=== PATIENT | male | born 1985 | race Caucasian/White ===

== ENCOUNTER 2017-10-19 17:23 | Emergency (ER) | payer OTHER ==
[2017-10-19 17:30] VITALS: BP 172/84
--- NOTE | 2017-10-19 17:45 | Emergency Department Report ---
Chief Complaint: Chest Pain Stated Complaint: CHEST PAIN Time Seen by Provider: 10/19/17 17:41 - HPI History of Present Illness: Patient is a 32-year-old male presents to ED stating to 3 days ago he took a performance build from one of his friends he describes a pill as oblong red white capsule with an extra pill at the end. Patient does not know the name of the pill as it wasn't some Yi writing. Patient states hour after taking the pill he started to feel like his heart was racing but thought nothing of it. Patient states today he was running around playing football with his son when he saturates experience his heart racing and some left-sided chest pain. He denies shortness of breath, dizziness, headache, blurry vision or any other problems pain - ROS Review of Systems: As noted in HPI - Exam Vital Signs: Vital Signs 10/19/17 17:26 Temperature 97.6 F Pulse Rate 80 Respiratory 18 Rate Blood Pressure 172/84 O2 Sat by Pulse 100 Oximetry Physical Exam: GENERAL: Alert and oriented x3, no apparent distress, Normal Gait, atraumatic. LUNGS: Symetrical with respiration, No wheezing, no rales or crackles, CTAB. HEART: S1, S2 present, regular rate and rhythm without murmur, no rubs, no gallops. Non tender to palpation SKIN: Warm and dry, No lesions, No ulceration or induration present. MSE screening note: Focused history and physical exam performed. Due to findings the following was ordered: ED Medical Decision Making - Medical Decision Making Chest and protocol ordered, EKG ordered. Urine drug screen tests ordered 32-year-old male looks stable and is in no acute distress ED Disposition for MSE Condition: Stable
[2017-10-19 18:15] LABS: Hematocrit 45.2 % (35.5-45.6); Hemoglobin 14.9 gm/dl (11.8-15.2); Mean Corpuscular HGB Conc 33 % (32-34); Mean Corpuscular Hemoglobin 29 pg (28-32); Mean Corpuscular Volume 87 fl (84-94); Platelet Count 228 K/mm3 (140-440); Red Blood Count 5.22 M/mm3 (3.65-5.03); Red Cell Distribution Width 14.1 % (13.2-15.2); White Blood Count 6.9 K/mm3 (4.5-11.0)
[2017-10-19 18:34] LABS: Anion Gap 18 mmol/L; BUN/Creatinine Ratio 8; Blood Urea Nitrogen 7 mg/dL (9-20); Carbon Dioxide 26 mmol/L (22-30); Chloride 103.5 mmol/L (98-107); Glucose 93 mg/dL (75-100); Potassium 4.4 mmol/L (3.6-5.0); Sodium 143 mmol/L (137-145)
[2017-10-19 18:50] LABS: Urine Drugs of Abuse Note Disclamer
[2017-10-19 18:56] LABS: Blastocytes % (Manual) 0 %; RBC Morphology Normal
[2017-10-19 18:57] LABS: Diff Status Complete; Platelet Estimate Consistent w Auto
== END 2017-10-19 21:54 | disposition left against medical advice (07) ==
LOC: ED 17:23
DX: R07.9 Chest pain, unspecified (principal); Z53.21 Procedure and treatment not carried out due to patient leaving prior to being seen by health care provider; Z79.899 Other long term (current) drug therapy
CPT/HCPCS: 36415; 80048; 80307; 84484; 85007; 85025; 93005; 93010

== ENCOUNTER 2019-01-11 02:45 | Inpatient (IN) | payer SELFPAY ==
--- NOTE | 2019-01-11 03:52 | Cat Scan Report ---
PROCEDURE: CT HEAD/BRAIN WO CON TECHNIQUE: Computerized tomography of the head was performed without contrast material. CT DOSE LENGTH PRODUCT: mGycm HISTORY: fall, [place] with Dizziness, nausea COMPARISONS: None . FINDINGS: Skull and scalp: Normal . Paranasal sinuses: Normal . Ventricles and subarachnoid spaces: Normal . Cerebrum: No evidence of hemorrhage, acute infarction or mass . Cerebellum and brainstem: No evidence of hemorrhage, acute infarction or mass . Vasculature: Normal . IMPRESSION: Normal Examination . This document is electronically signed by Carlos Rudd MD., January 11 2019 03:49:49 AM ET
--- NOTE | 2019-01-11 06:28 | Emergency Department Report ---
ED Syncope HPI - General Chief Complaint: Fall Stated Complaint: HEADACHE/DIZZINESS Time Seen by Provider: 01/11/19 06:12 Source: patient Exam Limitations: no limitations - History of Present Illness Initial Comments: Patient is a 33-year-old male that presents emergency room with complaints of headache, dizziness and nausea. Patient states she had a syncopal episode yesterday. Patient states he was dizzy and blacked out and hit his head. Patient states he is unsure of how long he was unconscious. Patient states ever since blacking out he's felt dizzy as well as a headache and nauseous. Patient denies vomiting. Patient denies chest pain or shortness of breath. Patient states the headache is a 7 out of 10. Patient states the headache and symptoms are better with rest and worse with exertion and movement. Patient states the pain is not radiating his head. Timing/Prior Episodes: no prior history Precipitating Factors: Positive: blurred vision, lightheadedness Context: activity Loss of Consciousness: prolonged (minutes) Current Symptoms: blurred vision, dizziness, headache, injury, nausea - Related Data Allergies/Adverse Reactions: Allergies No Known Allergies Allergy (Unverified 10/19/17 17:26) Home Medications: Ambulatory Orders No Known Home Medications [No Reported Home Medications] 01/11/19 ED Review of Systems ROS: Stated complaint: HEADACHE/DIZZINESS Other details as noted in HPI Constitutional: denies: chills, fever Eyes: denies: eye pain, eye discharge, vision change ENT: denies: ear pain, throat pain Respiratory: denies: cough, shortness of breath, wheezing Cardiovascular: denies: chest pain, palpitations Endocrine: no symptoms reported Gastrointestinal: denies: abdominal pain, nausea, diarrhea Genitourinary: denies: urgency, dysuria Musculoskeletal: denies: back pain, joint swelling, arthralgia Skin: denies: rash, lesions Neurological: as per HPI, headache. denies: weakness, paresthesias Psychiatric: denies: anxiety, depression Hematological/Lymphatic: denies: easy bleeding, easy bruising ED Past Medical Hx - Past Medical History Previous Medical History?: Yes Hx Hypertension: Yes - Surgical History Past Surgical History?: Yes Additional Surgical History: l't leg S/P - Family History Family history: no significant - Social History Smoking Status: Current Every Day Smoker Substance Use Type: None - Medications Home Medications: Home Medications Medication Instructions Recorded Confirmed Last Taken Type No Known Home Medications [No 01/11/19 01/11/19 Unknown History Reported Home Medications] ED Physical Exam - General Limitations: No Limitations General appearance: alert, in no apparent distress - Head Head exam: Present: atraumatic, normocephalic - Eye Eye exam: Present: normal appearance, PERRL Pupils: Present: normal accommodation - ENT ENT exam: Present: mucous membranes moist - Neck Neck exam: Present: normal inspection - Respiratory Respiratory exam: Present: normal lung sounds bilaterally. Absent: respiratory distress - Cardiovascular Cardiovascular Exam: Present: regular rate, normal rhythm. Absent: systolic murmur, diastolic murmur, rubs, gallop - GI/Abdominal GI/Abdominal exam: Present: soft, normal bowel sounds - Rectal Rectal exam: Present: deferred - Extremities Exam Extremities exam: Present: normal inspection - Back Exam Back exam: Present: normal inspection - Neurological Exam Neurological exam: Present: alert, oriented X3 - Psychiatric Psychiatric exam: Present: normal affect, normal mood - Skin Skin exam: Present: warm, dry, intact, normal color. Absent: rash ED Course Vital Signs 01/11/19 01/11/19 01/11/19 02:52 06:52 14:20 Temperature 97.8 F 97.7 F Pulse Rate 73 66 Respiratory 16 18 12 Rate Blood Pressure 147/104 Blood Pressure 126/82 [Left] O2 Sat by Pulse 98 97 99 Oximetry - Reevaluation(s) Reevaluation #1: Discussed her results with patient. Head CT is negative. Patient will have further lab testing done. 01/11/19 06:35 Patient states unobtainable. An ablation attempted the patient is unsteady even get out of bed. 01/11/19 11:22 gait still unstable and patient unable to ambulate. Patient will be admitted to the hospitalist service for further evaluation and treatment. Patient agrees with plan of care and admission. 01/11/19 12:22 - Consultations Consultation #1: 01/11/19 12:33 Hospitalist consulted for admission. Hospitalist to admit patient and assume care of patient. Bridge orders placed for hospitalist ED Medical Decision Making - Lab Data Result diagrams: 01/11/19 06:50 01/11/19 06:50 - EKG Data -: EKG Interpreted by Me EKG shows normal: sinus rhythm, axis, intervals, QRS complexes, ST-T waves Rate: normal - Radiology Data Radiology results: report reviewed Negative head CT. Negative chest x-ray. - Medical Decision Making Patient is a 3-year-old male that transverse in with complaints of syncope and fall and dizziness. Patient also headache. Patient given a liter of fluids. Patient attempts to ambulate in the ER and was unable to due to his dizziness which made his gait is unstable. Patient will be admitted to the hospitalist service for further evaluation treatment. Labs unremarkable. Head CT negative chest x-ray negative. Patient will require an MRI to further evaluate neurologic conditions. UDS positive for cocaine and THC - Differential Diagnosis dizziness. Syncope. Head injury. Fall. Headache. Hypertension Critical Care Time: Yes Critical care attestation.: If time is entered above; I have spent that time in minutes in the direct care of this critically ill patient, excluding procedure time. Critical Care Time: 45 minutes ED Disposition Clinical Impression: Dizziness, Unsteady gait, Syncope and collapse Hypertension Qualifiers: Hypertension type: essential hypertension Qualified Code(s): I10 - Essential (primary) hypertension Headache Qualifiers: Headache type: unspecified Headache chronicity pattern: acute headache Intractability: intractable Qualified Code(s): R51 - Headache Disposition: DC-09 OP ADMIT IP TO THIS HOSP Is pt being admited?: Yes Does the pt Need Aspirin: No Condition: Critical Time of Disposition: 12:30
[2019-01-11] MEDS ORDERED: NACL 0.9% 1000 ML 1,000 ML IV ONE (06:34)
--- NOTE | 2019-01-11 06:52 | XRay Report ---
PROCEDURE: XR CHEST 1V AP TECHNIQUE: AP portable chest radiograph HISTORY: Syncope COMPARISONS: None FINDINGS: No mediastinal shift. Cardiac silhouette is not enlarged. No pneumothorax, effusion, or focal pulmona ry opacity identified. No acute skeletal findings. IMPRESSION: No acute pulmonary finding identified. This document is electronically signed by Jim Barton MD., January 11 2019 06:50:39 AM ET
[2019-01-11 07:02] LABS: Basophils % (Auto) 0.5 % (0.0-1.8); Eosinophils # (Auto) 0.2 K/mm3 (0.0-0.4); Hemoglobin 16.7 gm/dl (11.8-15.2); Lymphocytes # (Auto) 4.4 K/mm3 (1.2-5.4); Lymphocytes % (Auto) 50.7 % (13.4-35.0); Mean Corpuscular HGB Conc 35 % (32-34); Mean Corpuscular Volume 87 fl (84-94); Monocytes # (Auto) 0.9 K/mm3 (0.0-0.8); Monocytes % (Auto) 10.1 % (0.0-7.3); Platelet Count 277 K/mm3 (140-440); Red Blood Count 5.54 M/mm3 (3.65-5.03); Red Cell Distribution Width 14.2 % (13.2-15.2)
[2019-01-11 07:21] LABS: Alanine Aminotransferase 12 units/L (7-56); Albumin 4.5 g/dL (3.9-5); BUN/Creatinine Ratio 10; Blood Urea Nitrogen 8 mg/dL (9-20); Calcium 9.7 mg/dL (8.4-10.2); Hemolysis Index 11
[2019-01-11 07:23] LABS: Creatine Kinase MB < 1.0 ng/mL (0.0-4.0)
[2019-01-11 08:55] LABS: Bilirubin,Urine NEG (Negative); Blood,Urine NEG (Negative); Color,Urine Yellow (Yellow); Mucus,Urine FEW /HPF; Protein,Urine <15 mg/dL mg/dL (Negative); Urobilinogen,Urine < 2.0 mg/dL (<2.0); WBC,Urine < 1.0 /HPF (0.0-6.0)
[2019-01-11 09:33] LABS: Amphetamine Screen,Urine PRESUMPTIVE NEGATIVE; Benzodiazepines Screen,Urine PRESUMPTIVE NEGATIVE; Methadone Screen,Urine PRESUMPTIVE NEGATIVE; Opiate Screen,Urine PRESUMPTIVE NEGATIVE
[2019-01-11 09:47] LABS: Cannabinoid Screen,Urine PRESUMPTIVE POSITIVE; Cocaine Screen,Urine PRESUMPTIVE POSITIVE
[2019-01-11] MEDS ORDERED: ASPIRIN PO ONE (11:02)
[2019-01-11] MEDS ORDERED: ASPIRIN ONE (11:06)
--- NOTE | 2019-01-12 03:50 | Event Note ---
Date: 01/11/19 See dictated H/p in reports AMS sec to THC and dehydration
[2019-01-12] MEDS ORDERED: PHENERGAN PR PRN (03:57)
[2019-01-12] MEDS ORDERED: ZOFRAN IV PRN (03:57)
[2019-01-12] MEDS ORDERED: TYLENOL PO PRN (03:57)
[2019-01-12] MEDS ORDERED: SODIUM CHLORIDE FLUSH SYRINGE 10 ML IV PRN (03:57)
[2019-01-12] MEDS ORDERED: D5NS 1,000 ML IV SCH (04:00)
[2019-01-12] MEDS ORDERED: SODIUM CHLORIDE FLUSH SYRINGE 10 ML IV SCH (04:00)
--- NOTE | 2019-01-12 05:20 | History and Physical Report ---
CHIEF COMPLAINT: 1. Dizziness and headache. 2. Syncopal episode yesterday. HISTORY OF PRESENT ILLNESS: A 33-year-old -[place] male, who comes in for headache and dizziness and unable to walk. The patient had a syncopal episode yesterday. The patient has been doing marijuana and cocaine on a regular basis and had a heavy dose yesterday. No vomiting. Headache pain is about 7/10. No exacerbating or relieving factors. He has lightheadedness and blurred vision. The patient has been doing marijuana and cocaine on a regular basis. PAST MEDICAL HISTORY: No significant past medical history except for hypertension. SURGICAL HISTORY: Left leg surgery. FAMILY HISTORY: Hypertension. SOCIAL HISTORY: Smokes over a pack a day and also marijuana and cocaine use on a regular basis. REVIEW OF SYSTEMS: Significant for headache and excessively sleepy and unable to wake up and unable to stand steady. Syncopal episode yesterday. Otherwise, review of systems negative. No fever, no chills. PHYSICAL EXAMINATION: GENERAL: Young male, drowsy during my examination. No focal signs. VITAL SIGNS: Temperature 97.7, pulse is 121, respiratory rate is 18, sats are 100%, blood pressure is 162/85. HEENT: Dry mucous membranes. NECK: Supple, no lymphadenopathy, no thyromegaly. LUNGS: Clear to auscultation and percussion. Good air entry. CARDIOVASCULAR: S1, S2 heard. No gallop, no murmur, no rub. Apical impulse in the left fifth intercostal space and midclavicular line. ABDOMEN: Soft and benign. No hepatosplenomegaly. No guarding, no rigidity. Hernial orifices are normal. EXTREMITIES: Good pedal pulses. No pedal edema. CENTRAL NERVOUS SYSTEM: Normal strength in all 4 extremities. Unable to stand secondary to his marijuana and cocaine abuse. Stands with difficulty, but able to lift his legs and arms while lying down. LABORATORY DATA: Significant for hemoglobin of 16.7, hematocrit of 48.0, platelet count of 277,000. Electrolytes are normal. BUN and creatinine is 8 and 0.8. LFTs are normal. Drug screen is positive for cocaine and marijuana. IMAGING: EKG normal sinus rhythm, normal intervals, normal QRS complexes. Heart rate of 61 per minute. Left ventricular hypertrophy present. Negative CT of the head. Negative chest x-ray. ASSESSMENT AND PLAN: 1. Syncope secondary to THC and cocaine abuse. IV fluids. No workup. We will defer to primary team regarding Lexiscan or exercise stress test. I am in favor of syncopal episode secondary to drug abuse. The patient may have fallen down secondary to excessive altered sensorium. The patient is young, has mild hypertension, does not have any risk factors for cardiac history or cardiac disease. We will get a Lexiscan because of the cocaine use to rule out any acute ischemic injury. 2. Dehydration. IV fluids. 3. Polycythemia secondary to hemoconcentration. 4. THC and cocaine abuse, counseling done. The patient to get outpatient treatment if he is willing to do. 5. Deep venous thrombosis prophylaxis, Lovenox 40 mg subcutaneous daily. JOB# [id number] GILBERTO/AYAN
[2019-01-12 05:48] LABS: Basophils % (Auto) 0.5 % (0.0-1.8); Eosinophils # (Auto) 0.1 K/mm3 (0.0-0.4); Eosinophils % (Auto) 1.7 % (0.0-4.3); Hemoglobin 16.9 gm/dl (11.8-15.2); Lymphocytes # (Auto) 3.6 K/mm3 (1.2-5.4); Lymphocytes % (Auto) 45.6 % (13.4-35.0); Mean Corpuscular HGB Conc 34 % (32-34); Mean Corpuscular Volume 87 fl (84-94); Monocytes # (Auto) 0.7 K/mm3 (0.0-0.8); Monocytes % (Auto) 8.7 % (0.0-7.3); Platelet Count 305 K/mm3 (140-440); Red Blood Count 5.74 M/mm3 (3.65-5.03); Red Cell Distribution Width 13.9 % (13.2-15.2)
[2019-01-12 06:06] LABS: Alanine Aminotransferase 14 units/L (7-56); Albumin 4.5 g/dL (3.9-5); BUN/Creatinine Ratio 10; Blood Urea Nitrogen 9 mg/dL (9-20); Calcium 9.6 mg/dL (8.4-10.2); Hemolysis Index 7
[2019-01-12] MEDS ORDERED: LEXISCAN IV ONE (08:51)
[2019-01-12] MEDS ORDERED: PEPCID PO SCH (10:00)
[2019-01-12 11:48] VITALS: BP 140/92
[2019-01-12] MEDS ORDERED: AFLURIA QUAD 2018-2019 SYRINGE IM ONE (12:00)
--- NOTE | 2019-01-12 12:57 | Discharge Summary ---
Providers - Providers Date of Admission: 01/11/19 12:35 Date of discharge: 01/12/19 Attending physician: WELLINGTON WYNN Hospitalization Condition: Stable Hospital course: Patient is a 33 yo man who recently moved here from [place], [place] without chronic medical problems with a history of tobacco dependency, marijuana and cocaine use who presented with AMS and possibly a syncopal episode after cocaine and marijuana use. * 2D ECHO reviewed with Dr. Varghese. Outpatient consulted suggested -AMS due to Acute toxic metabolic encephalopathy from illegal drugs: counselling done -Syncope most likely vasovagal -Suspected Hypertension with heart LVH: added low dose lisinopril -Polysubstance abuse with cocaine and marijuana: assistant counsel on compliance -Tobacco dependency: assistant counsel on stopping. Disposition: DC-01 TO HOME OR SELFCARE Time spent for discharge: 35 minutes Core Measure Documentation - Palliative Care Palliative Care/ Comfort Measures: Not Applicable - Core Measures Any of the following diagnoses?: none - VTE Discharge Requirements Deep Vein Thrombosis/Pulmonary Embolism Present on Admission: No Has pt received <5 days of overlap therapy or INR<2.0: No Anticoagulant overlap therapy prescribed at discharge: No Contraindication No Overlap Therapy order at DC: Not Indicated Exam - Physical Exam Narrative exam: GEN: WDWN, NAD, Awake, Alert, Orientated HEENT: NCAT, EOMI, PERRL, OP Clear NECK: supple, no adenopathy, no thyromegaly, no JVD CVS/HEART: RRR, normal S1S2, pulses present bilaterally CHEST/LUNGS: CTA B, Symmetrical chest expansion, good air entry bilaterally GI/Abdomen: soft, NTND, good bowel sounds, no guarding or rebound /Bladder: no suprapubic tenderness, no CVA or paraspinal tenderness EXT/Skin: no c/c/e, no obvious rash MSK: FROM x 4 Neuro: CN 2-12 grossly intact, no new focal deficits Psych: calm - Constitutional Vitals: Temp Pulse Resp BP Pulse Ox 97.7 F 88 20 140/92 99 01/12/19 11:13 01/12/19 11:13 01/12/19 11:13 01/12/19 11:13 01/12/19 11:13 Plan Activity: other (no strenous activity) Diet: low salt Special Instructions: record daily BP diary, smoking cessation Follow up with: [facility] [Other] - 3-5 Days DAVIE VARGHESE MD [Staff Physician] - 7 Days Prescriptions: Lisinopril [Prinivil] 5 mg PO QDAY #30 tablet
--- NOTE | 2019-01-12 21:11 | Treadmill Report ---
TREADMILL STRESS TEST Treadmill nuclear stress test, this is the treadmill portion, here for syncope with cocaine use. The patient's baseline EKG is sinus rhythm at 61 with early repolarization. Baseline blood pressure was 138/95. The patient achieved 90% max predicted heart rate. Peak heart rate was 180. Peak blood pressure 182/98. There were no EKG changes to suggest ischemia. No arrhythmia to suggest ischemia. Stopped secondary to shortness of breath. SUMMARY: 1. Negative treadmill EKG. 2. Good exercise capacity 9 minutes Abltazar protocol. 3. No exaggerated BP response to exercise. 4. There is no diagnostic EKG changes or anything to suggest ischemia. Nuclear imaging pending. JOB# [id number] ZA/AYAN
--- NOTE | 2019-01-12 21:43 | Treadmill Report ---
NUCLEAR PERFUSION STUDY REASON FOR STUDY: Syncope and cocaine use. IMAGING PROTOCOL: The patient received 10 mCi of Technetium 99m Tetrofosmin for resting image and 28 mCi of Technetium 99m Tetrofosmin for stress imaging. The imaging for the whole procedure was completed 30-90 minutes following the initial injection of Technetium 99m Tetrofosmin. The SPECT imaging in the 180 degree arc was performed in the right anterior oblique projection. Computerized reconstruction of the images was performed for analysis. IMAGING RESULTS: Normal cavity size from stress to rest. Normal distribution of radionuclide in the anterior, inferior, septal, and apical regions. Gated SPECT, EF 50% with no wall motion abnormality. The patient exercised 9 minutes of Baltazar protocol. No EKG changes suggestive of ischemia. SUMMARY: 1. Negative treadmill EKG. 2. [id number] exercise capacity, 9 minutes of Baltazar protocol. 3. No exaggerated BP response to exercise. 4. Normal rest and stress myocardial perfusion scan. No significant stress ischemia. No wall motion abnormality. Gated SPECT, EF 50%. JOB# [id number] ZA/AYAN
== END 2019-01-12 14:20 | disposition home or self-care (01) | DRG 917 ==
LOC: ED 02:45 → 3A 12:35
PROVIDERS: ADMIT Internal Medicine; ATTEND Internal Medicine
DX: T40.7X1A Poisoning by cannabis (derivatives), accidental (unintentional), initial encounter (principal); G92 Toxic encephalopathy; R55 Syncope and collapse; I10 Essential (primary) hypertension; F17.210 Nicotine dependence, cigarettes, uncomplicated; R51 Headache; E86.0 Dehydration; Y92.89 Other specified places as the place of occurrence of the external cause; I11.9 Hypertensive heart disease without heart failure; F14.10 Cocaine abuse, uncomplicated; D75.1 Secondary polycythemia
CPT/HCPCS: 36415; 70450; 71045; 78452; 80053; 80307; 81001; 82550; 82553; 84484; 85025; 85379; 90686; 93005; 93010; 93017; 93306; 96374; 99291; 99406; G0378; A9502; J2785; J7030

== ENCOUNTER 2020-07-26 16:20 | Emergency (ER) | payer SELFPAY | END 2020-07-26 16:40 | disposition left against medical advice (07) | LOC: ED 16:20 | DX: R41.82 Altered mental status, unspecified (principal); Z53.21 Procedure and treatment not carried out due to patient leaving prior to being seen by health care provider ==

== ENCOUNTER 2021-01-17 05:07 | Emergency (ER) | payer SELFPAY ==
[2021-01-17] MEDS ORDERED: ONDANSETRON 4 MG/2 ML INJ ONE (05:21)
[2021-01-17] MEDS ORDERED: ONDANSETRON 4 MG/2 ML INJ IV ONE (05:24)
[2021-01-17] MEDS ORDERED: LORazepam 2 MG/ML VIAL ONE (06:15)
[2021-01-17] MEDS ORDERED: LORazepam 2 MG/ML VIAL IV ONE ×2 (06:22→07:25)
[2021-01-17 06:47] LABS: Basophils % (Auto) 0.3 % (0.0-1.8); Eosinophils % (Auto) 0.1 % (0.0-4.3); Hematocrit 49.6 % (35.5-45.6); Hemoglobin 16.4 gm/dl (11.8-15.2); Lymphocytes # (Auto) 2.5 K/mm3 (1.2-5.4); Mean Corpuscular HGB Conc 33 % (32-34); Mean Corpuscular Volume 92 fl (84-94); Monocytes # (Auto) 2.1 K/mm3 (0.0-0.8); Monocytes % (Auto) 11.7 % (0.0-7.3); Platelet Count 302 K/mm3 (140-440); Red Blood Count 5.39 M/mm3 (3.65-5.03); Red Cell Distribution Width 14.6 % (13.2-15.2)
[2021-01-17] MEDS ORDERED: SODIUM CHLORIDE 0.9% 1000 ML 1,000 ML IV ONE ×2 (06:49→11:00)
[2021-01-17 06:57] LABS: BUN/Creatinine Ratio 6; Blood Urea Nitrogen 9 mg/dL (9-20); Calcium 9.3 mg/dL (8.4-10.2); Hemolysis Index 11
--- NOTE | 2021-01-17 07:12 | Emergency Department Report ---
ED Seizure HPI - General Chief Complaint: Seizure Stated Complaint: POSS SEIZURE Time Seen by Provider: 01/17/21 06:15 Source: EMS Mode of arrival: Stretcher Limitations: Altered Mental Status - History of Present Illness Initial Comments: 35-year-old male, no past medical history, presents to ED following witnessed seizure at home. Upon EMS arrival, patient had been incontinent of urine and confused. Patient denied drinking any alcohol or using any drugs. EMS stated that family reports patient did drink some alcohol last night. EMS reports andrew ent slipped and fell when they arrived, hitting his head and causing a small laceration to the right eyebrow area. Just before I went and spoke to the patient, patient reported some abdominal pain to the nurse. When I went into the room, patient was actively seizing. This lasted for approximately 60 seconds. Ativan 2 mg was given. MD Complaint: seizure -: This morning Description of Episode: loss of consciousness, bladder incontinence, post-event confusion Witnessed:: Yes Seizure History: none Place: home Associated Symptoms: denies: cough, fever/chills, shortness of breath Treatments Prior to Arrival: none - Related Data Previous Rx's Medication Instructions Recorded Last Taken Type lisinopriL [Prinivil] 5 mg PO QDAY #30 tablet 01/12/19 Unknown Rx Naproxen [Naprosyn] 500 mg PO BID #20 tablet 01/17/21 Unknown Rx levETIRAcetam [Keppra TAB] 500 mg PO BID #60 tablet 01/17/21 Unknown Rx Allergies Allergy/AdvReac Type Severity Reaction Status Date / Time No Known Allergies Allergy Unverified 10/19/17 17:26 ED Review of Systems ROS: Stated complaint: POSS SEIZURE Other details as noted in HPI ED Past Medical Hx - Past Medical History Previous Medical History?: No Hx Hypertension: Yes Hx Asthma: No - Surgical History Past Surgical History?: No Additional Surgical History: l't leg S/P - Social History Smoking Status: Current Some Day Smoker Substance Use Type: None - Medications Home Medications: Home Medications Medication Instructions Recorded Confirmed Last Taken Type lisinopriL [Prinivil] 5 mg PO QDAY #30 tablet 01/12/19 Unknown Rx Naproxen [Naprosyn] 500 mg PO BID #20 tablet 01/17/21 Unknown Rx levETIRAcetam [Keppra TAB] 500 mg PO BID #60 tablet 01/17/21 Unknown Rx ED Physical Exam - General Limitations: Altered Mental Status General appearance: other (Actively seizing) - Head Head exam: Present: other (1 cm laceration just below right eyebrow) - Eye Eye exam: Present: normal appearance - ENT ENT exam: Present: mucous membranes moist - Neck Neck exam: Present: normal inspection - Respiratory Respiratory exam: Present: normal lung sounds bilaterally. Absent: respiratory distress - Cardiovascular Cardiovascular Exam: Present: normal rhythm, tachycardia - GI/Abdominal GI/Abdominal exam: Present: soft. Absent: distended, tenderness - Extremities Exam Extremities exam: Present: normal inspection - Neurological Exam Neurological exam: Present: other (actively seizing) - Skin Skin exam: Present: warm, dry, intact, normal color ED Course Vital Signs 01/17/21 01/17/21 01/17/21 05:11 06:40 06:45 Temperature 98.3 F Pulse Rate 83 95 H 95 H Respiratory 26 H 18 18 Rate Blood Pressure 138/86 143/66 Blood Pressure 132/71 [Left] O2 Sat by Pulse 97 100 100 Oximetry 01/17/21 01/17/21 01/17/21 07:01 07:54 08:01 Temperature Pulse Rate 89 92 H Respiratory 18 19 Rate Blood Pressure 138/72 143/66 175/103 Blood Pressure [Left] O2 Sat by Pulse 93 91 Oximetry 01/17/21 01/17/21 01/17/21 08:15 08:31 08:45 Temperature Pulse Rate 94 H 95 H 90 Respiratory 20 17 20 Rate Blood Pressure 141/77 146/80 146/87 Blood Pressure [Left] O2 Sat by Pulse 91 91 92 Oximetry 01/17/21 01/17/21 01/17/21 09:01 09:13 10:14 Temperature Pulse Rate 99 H 86 Respiratory 21 Rate Blood Pressure 150/82 109/75 Blood Pressure [Left] O2 Sat by Pulse 97 98 97 Oximetry 01/17/21 01/17/21 01/17/21 10:15 11:25 11:31 Temperature Pulse Rate 85 85 Respiratory 15 19 Rate Blood Pressure 117/58 130/56 117/56 Blood Pressure [Left] O2 Sat by Pulse 96 96 Oximetry 01/17/21 01/17/21 01/17/21 11:45 12:01 12:15 Temperature Pulse Rate 87 93 H 96 H Respiratory 19 19 19 Rate Blood Pressure 110/46 116/62 123/66 Blood Pressure [Left] O2 Sat by Pulse 94 100 100 Oximetry 01/17/21 01/17/21 12:31 13:42 Temperature Pulse Rate 90 Respiratory 16 Rate Blood Pressure 123/66 Blood Pressure 138/83 [Left] O2 Sat by Pulse 100 99 Oximetry - Reevaluation(s) Reevaluation #1: 01/17/21 07:17 I spoke with , who is waiting in the waiting room. She reports patient has no history of seizures in the past. He does smoke marijuana. states she does not know of any other drug use (drug screen from 2019 is positive for marijuana and cocaine ). He drinks occasionally, not every day. Patient did have alcoholic drinks last night. States patient had been fine up until his seizure, no altered mental status. states prior to the seizure, patient complained of a headache. She denies any fever, cough, diarrhea, abdominal pain. Although, patient complained of abdominal pain upon ED arrival. Reevaluation #2: 01/17/21 07:25 certified control systems technician called and states pt in CT yelling and cursing, attempting to get off of stretcher. Will order Ativan. Reevaluation #3: 01/17/21 09:23 Pt remains postictal, however, he is arousable, able to state name. Reevaluation #4: 01/17/21 11:55 Pt currently awake and alert, oriented x 3. States he is ready to go. I asked pt to give a urine sample. Pt stated, "I'll think about it." Will contact to black pickler pt. - Laceration /Wound Repair Right Face Wound Location: face Wound Length (cm): 1 Wound's Depth, Shape: superficial Wound Explored: clean Irrigated w/ Saline (ccs): 50 Wound Repaired With: Dermabond ED Medical Decision Making - Lab Data Result diagrams: 01/17/21 06:31 01/17/21 06:31 - EKG Data -: EKG Interpreted by Me EKG shows normal: sinus rhythm, axis, intervals, QRS complexes, ST-T waves Rate: normal - EKG Data Interpretation: no acute changes - Radiology Data Radiology results: report reviewed, image reviewed - Medical Decision Making 35-year-old male patient presents to ED after having a seizure at home. Patient had 1 witnessed seizure here in the ED. He was given Ativan 2 mg during that seizure. Also given another 2 mg of Ativan while in CT secondary to being postictal and somewhat aggressive. Patient was given IV fluids and Keppra while being observed in the ED. Patient was observed for more than 6 hours. Mental status eventually returned to baseline, with patient answering questions appropriately. CT head negative, chest x-ray negative, EKG unremarkable. Labs show some leukocytosis and metabolic acidosis, however likely secondary to patient's seizures. Patient is afebrile, remainder vital signs are normal, he is not tachycardic. There were a couple of O2 sats that were charted as 91 or 92, however this was in error, likely did not have a good waveform during these readings. I have personally observed patient's O2 sats and they have been normal. Patient is in no respiratory distress. Drug screen positive for cocaine and marijuana. Patient advised against drug use. He will be discharged at this time into the care of his . Patient is able to ambulate. Outpatient follow-up with neurologist advised. Prescription given for Keppra. Return precautions given. - Differential Diagnosis Intracranial abnormality, arrhythmia, electrolyte abnormality, drug use Critical care attestation.: If time is entered above; I have spent that time in minutes in the direct care of this critically ill patient, excluding procedure time. ED Disposition Clinical Impression: Facial laceration, Seizure, Cocaine abuse Disposition: DC-01 TO HOME OR SELFCARE Is pt being admited?: No Condition: Stable Instructions: Sutures, [place], or Adhesive Wound Closure, [id number], Seizure, Adult, [id number], Nonsutured Laceration Care Prescriptions: levETIRAcetam [Keppra TAB] 500 mg PO BID #60 tablet Naproxen [Naprosyn] 500 mg PO BID #20 tablet Referrals: PRIMARY MD YOKASTA [Primary Care Provider] - 3-5 Days SEAN SADLER MD [Referring] - 3-[address] [facility] [Provider Group] - 3-5 Days
[2021-01-17] MEDS ORDERED: levETIRAcetam 1,000 MG in SODIUM CHLORIDE 0.9% 100 ML IV ONE (07:17)
[2021-01-17] MEDS ORDERED: levETIRAcetam 1000 MG/NS 0.75% 1,000 MG/100 ML BAG IV NR (08:00)
--- NOTE | 2021-01-17 08:13 | Cat Scan Report ---
CT ABDOMEN AND PELVIS WITH CONTRAST INDICATION / CLINICAL INFORMATION: Fall. TECHNIQUE: Axial CT images were obtained through the abdomen and pelvis after IV contrast. All CT sc ans at this location are performed using CT dose reduction for ALARA by means of automated exposure c ontrol. COMPARISON: None available. FINDINGS: LOWER CHEST: No significant abnormality LIVER: No significant abnormality GALLBLADDER/BILIARY TREE: No significant abnormality PANCREAS: No significant abnormality SPLEEN: No significant abnormality ADRENALS: No significant abnormality KIDNEYS / URETER: No significant abnormality URINARY BLADDER: Bladder is partially decompressed, though grossly unremarkable. REPRODUCTIVE ORGANS: No significant abnormality STOMACH / SMALL BOWEL: Small hiatal hernia. Stomach and small bowel are otherwise normal. COLON: The colon is unremarkable. The appendix is normal in caliber. LYMPH NODES: No significant adenopathy. VASCULATURE: No significant abnormality. OTHER: No free air, free fluid, or focal fluid collection is identified. SKELETAL SYSTEM: Nonaggressive appearing sclerotic focus in the right ilium. No acute process. IMPRESSION: No acute abnormality of the abdomen or pelvis. Signer Name: Ulises Lim MD Signed: 01/17/2021 8:08 AM Workstation Name: [id number]
--- NOTE | 2021-01-17 08:26 | Cat Scan Report ---
CT HEAD WITHOUT CONTRAST INDICATION / CLINICAL INFORMATION: Patient had a fall. Seizure TECHNIQUE: Axial imaging performed from the skull apex through the skull base without the use of cont rast. Sagittal and coronal reformatted images. All CT scans at this location are performed using CT dose reduction for ALARA by means of automated exposure control. COMPARISON: 01/11/2019 FINDINGS: CEREBRAL PARENCHYMA: No significant abnormality. No acute territorial infarct. HEMORRHAGE: None. EXTRA-AXIAL SPACES: Normal in size and morphology for the patient's age. VENTRICULAR SYSTEM: Normal in size and morphology for the patient's age. MIDLINE SHIFT OR HERNIATION: None. CEREBELLUM / BRAINSTEM: No significant abnormality. CALVARIUM: No significant abnormality. ORBITS: Normal as visualized. PARANASAL SINUSES / MASTOID AIR CELLS: Normal as visualized. SOFT TISSUES of HEAD: No significant abnormality. ADDITIONAL FINDINGS: None. IMPRESSION: No acute intracranial abnormality. CT CERVICAL SPINE WITHOUT CONTRAST INDICATION: Patient had a fall. Seizure. TECHNIQUE: Axial imaging performed through the cervical spine without the use of contrast. Sagittal and coronal reconstructed images were also reviewed. All CT scans at this location are performed us ing CT dose reduction for ALARA by means of automated exposure control. COMPARISON: None FINDINGS: Alignment: Spinal alignment is normal. Bones: There is no acute osseous abnormality. No significant degenerative changes or bone lesion. Soft tissues: No acute or significant incidental soft tissue abnormality. Multiple small subpleural apical blebs are identified at the lung apices. IMPRESSION: No acute abnormality. Signer Name: Juarez Higgins Jr, MD Signed: 01/17/2021 8:22 AM Workstation Name: [id number]
[2021-01-17 08:27] LABS: Alanine Aminotransferase 16 units/L (7-56); Albumin 4.7 g/dL (3.9-5)
[2021-01-17 08:41] LABS: Bilirubin,Direct < 0.2 mg/dL (0-0.2)
--- NOTE | 2021-01-17 09:43 | XRay Report ---
XR chest 1V ap INDICATION / CLINICAL INFORMATION: seizure. COMPARISON: 01/11/2019 FINDINGS: SUPPORT DEVICES: None. HEART /PULMONARY VASCULATURE: No significant abnormality. LUNGS / PLEURA: No significant pulmonary or pleural abnormality. No pneumothorax. ADDITIONAL FINDINGS: No significant additional findings. IMPRESSION: 1. No acute findings. Signer Name: Ulises Lim MD Signed: 01/17/2021 9:38 AM Workstation Name: [id number]
[2021-01-17 13:43] VITALS: BP 138/83
[2021-01-17 13:46] LABS: Bilirubin,Urine NEG (Negative); Blood,Urine LG (Negative); Color,Urine Yellow (Yellow); Mucus,Urine FEW /HPF; Urobilinogen,Urine < 2.0 mg/dL (<2.0)
[2021-01-17 13:53] LABS: Amphetamine Screen,Urine Negative; Benzodiazepines Screen,Urine Negative; Methadone Screen,Urine Negative; Opiate Screen,Urine Negative
[2021-01-17 15:18] LABS: Cannabinoid Screen,Urine PRESUMPTIVE POSITIVE
[2021-01-17 15:19] LABS: Cocaine Screen,Urine PRESUMPTIVE POSITIVE
--- NOTE | 2021-01-18 10:35 | Electrocardiograph Report ---
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
== END 2021-01-17 13:51 | disposition home or self-care (01) ==
LOC: ED 05:07
DX: S01.81XA Laceration without foreign body of other part of head, initial encounter (principal); F14.10 Cocaine abuse, uncomplicated; I10 Essential (primary) hypertension; F17.200 Nicotine dependence, unspecified, uncomplicated; Z79.899 Other long term (current) drug therapy; W18.30XA Fall on same level, unspecified, initial encounter; Y93.89 Activity, other specified; Y92.89 Other specified places as the place of occurrence of the external cause; Y99.8 Other external cause status
CPT/HCPCS: 12011; 36415; 70450; 71045; 72125; 74177; 80048; 80076; 80307; 81001; 83690; 85025; 93005; 96361; 96365; 96375; 96376; 99285; J1953; J2060; J2405; J7030; Q9967; 80320; G0480

== ENCOUNTER 2021-03-25 04:23 | Emergency (ER) | payer SELFPAY ==
--- NOTE | 2021-03-25 08:45 | Emergency Department Report ---
ED General Adult HPI - General Chief complaint: Urogenital-Male Stated complaint: PAINFUL URINATION/ITCHY/DISCHARGE Time Seen by Provider: 03/25/21 08:05 Source: patient Mode of arrival: Ambulatory Limitations: No Limitations - History of Present Illness Initial comments: 35-year-old -[place] male patient presents with complaints of dysuria and hematuria for the past few days. Patient states his symptoms started after taking a sex supplement and believes he is having an allergic reaction. He also complains of some throat pain. Patient does admit to unprotected intercourse prior to the start of his symptoms. He denies any fever/chills/sweats, penile discharge, penile/testicular pain/swelling, skin lesions, cough, rash, or joint pain. No prior medical history per patient. - Related Data Previous Rx's Medication Instructions Recorded Last Taken Type lisinopriL [Prinivil] 5 mg PO QDAY #30 tablet 01/12/19 Unknown Rx Naproxen [Naprosyn] 500 mg PO BID #20 tablet 01/17/21 Unknown Rx levETIRAcetam [Keppra TAB] 500 mg PO BID #60 tablet 01/17/21 Unknown Rx Azithromycin 1,000 mg PO ONCE #2 tablet 03/25/21 Unknown Rx Allergies Allergy/AdvReac Type Severity Reaction Status Date / Time No Known Allergies Allergy Unverified 10/19/17 17:26 ED Review of Systems ROS: Stated complaint: PAINFUL URINATION/ITCHY/DISCHARGE Other details as noted in HPI Constitutional: denies: chills, fever ENT: throat pain Respiratory: denies: cough, shortness of breath Cardiovascular: denies: chest pain Gastrointestinal: denies: nausea, vomiting Genitourinary: dysuria, hematuria. denies: frequency, discharge, testicular pain, testicular mass Skin: denies: rash, change in color Hematological/Lymphatic: denies: swollen glands ED Past Medical Hx - Past Medical History Previous Medical History?: No Hx Hypertension: Yes Hx Asthma: No - Surgical History Past Surgical History?: No Additional Surgical History: l't leg S/P - Social History Smoking Status: Never Smoker Substance Use Type: None - Medications Home Medications: Home Medications Medication Instructions Recorded Confirmed Last Taken Type lisinopriL [Prinivil] 5 mg PO QDAY #30 tablet 01/12/19 Unknown Rx Naproxen [Naprosyn] 500 mg PO BID #20 tablet 01/17/21 Unknown Rx levETIRAcetam [Keppra TAB] 500 mg PO BID #60 tablet 01/17/21 Unknown Rx Azithromycin 1,000 mg PO ONCE #2 tablet 03/25/21 Unknown Rx ED Physical Exam - General Limitations: No Limitations General appearance: alert, in no apparent distress - Head Head exam: Present: atraumatic, normocephalic - Eye Eye exam: Present: normal appearance - Expanded ENT Exam Expanded Throat exam: Positive: tonsillar erythema. Negative: tonsillar exudate - Neck Neck exam: Present: normal inspection, lymphadenopathy (Mild anterior cervical) - Respiratory Respiratory exam: Absent: respiratory distress - Cardiovascular Cardiovascular Exam: Present: regular rate - GI/Abdominal GI/Abdominal exam: Present: soft. Absent: tenderness - Extremities Exam Extremities exam: Present: normal inspection, full ROM - Back Exam Back exam: Present: normal inspection - Neurological Exam Neurological exam: Present: alert, oriented X3 - Psychiatric Psychiatric exam: Present: normal affect, normal mood - Skin Skin exam: Present: warm, dry, intact, normal color. Absent: rash ED Course Vital Signs 03/25/21 03/25/21 06:00 09:49 Temperature 98.1 F Pulse Rate 82 77 Respiratory 16 Rate Blood Pressure 145/92 Blood Pressure 131/86 [Left] O2 Sat by Pulse 98 99 Oximetry ED Medical Decision Making - Medical Decision Making 35-year-old -[place] male patient presents with complaints of dysuria and hematuria for the past few days. Patient states his symptoms started after taking a sex supplement and believes he is having an allergic reaction. He also complains of some throat pain. Patient does admit to unprotected intercourse prior to the start of his symptoms. He denies any fever/chills/sweats, penile discharge, penile/testicular pain/swelling, skin lesions, cough, rash, or joint pain. No prior medical history per patient. Suspect possible STI. Given sore throat with noted erythema on exam, will treat empirically for gonorrhea and chlamydia. Recommend patient be seen at the health department for further STI evaluation follow-up with his primary care doctor in 3 days. His vitals are within normal limits, he is well-appearing, he is stable for discharge home. Strict return precautions were discussed in detail patient verbalized understanding. Critical care attestation.: If time is entered above; I have spent that time in minutes in the direct care of this critically ill patient, excluding procedure time. ED Disposition Clinical Impression: Dysuria, Pyuria Pharyngitis Qualifiers: Pharyngitis/tonsillitis etiology: other specified organisms Qualified Code(s): J02.8 - Acute pharyngitis due to other specified organisms Disposition: - TO HOME OR SELFCARE Is pt being admited?: No Condition: Stable Instructions: Chlamydia, Male, Dysuria, Preventing Sexually Transmitted Infections, Adult, Gonorrhea Prescriptions: Azithromycin 1,000 mg PO ONCE #2 tablet Referrals: [facility] [Provider Group] - 3-5 Days
[2021-03-25 09:19] LABS: Bilirubin,Urine NEG (Negative); Blood,Urine NEG (Negative); Color,Urine Yellow (Yellow); Mucus,Urine 3+ /HPF
[2021-03-25] MEDS ORDERED: LIDOCAINE-MPF (1%) 10 MG/1 ML VIAL 5 ML INFILTRATI ONE (09:32)
[2021-03-25 09:49] VITALS: BP 131/86
== END 2021-03-25 09:50 | disposition home or self-care (01) ==
LOC: ED 04:23
DX: R82.81 Pyuria (principal); R31.9 Hematuria, unspecified; R30.0 Dysuria; J02.9 Acute pharyngitis, unspecified; I10 Essential (primary) hypertension; Z79.899 Other long term (current) drug therapy
CPT/HCPCS: 81001; 87086; 96372; 99283; J0696